=== PATIENT | female | born 1995 | race African-American/Black ===

== ENCOUNTER 2021-09-13 16:26 | Outpatient (CLI) | payer OTHER | END 2021-09-13 17:15 | disposition home or self-care (01) | LOC: PRENATAL 16:26 | PROVIDERS: ATTEND Obstetrics & Gynecology Maternal & Fetal Medicine | DX: Z36.89 Encounter for other specified antenatal screening (principal); O36.80X1 Pregnancy with inconclusive fetal viability, fetus 1; Z3A.11 11 weeks gestation of pregnancy ==

== ENCOUNTER 2021-11-04 08:08 | Outpatient (CLI) | payer OTHER | END 2021-11-04 08:58 | disposition home or self-care (01) | LOC: PRENATAL 08:08 | PROVIDERS: ATTEND Obstetrics & Gynecology Maternal & Fetal Medicine | DX: O35.0XX1 Maternal care for (suspected) central nervous system malformation in fetus, fetus 1 (principal); O35.3XX1 Maternal care for (suspected) damage to fetus from viral disease in mother, fetus 1; O98.512 Other viral diseases complicating pregnancy, second trimester; O26.872 Cervical shortening, second trimester; O26.852 Spotting complicating pregnancy, second trimester; Z36.89 Encounter for other specified antenatal screening; Z3A.19 19 weeks gestation of pregnancy ==

== ENCOUNTER 2021-11-24 09:38 | Outpatient (CLI) | payer OTHER | END 2021-11-24 10:20 | disposition home or self-care (01) | LOC: PRENATAL 09:38 | PROVIDERS: ATTEND Obstetrics & Gynecology Maternal & Fetal Medicine | DX: O26.842 Uterine size-date discrepancy, second trimester (principal); O26.872 Cervical shortening, second trimester; O26.852 Spotting complicating pregnancy, second trimester; Z36.89 Encounter for other specified antenatal screening; Z3A.21 21 weeks gestation of pregnancy ==

== ENCOUNTER 2022-01-10 11:40 | Outpatient (CLI) | payer OTHER | END 2022-01-10 12:46 | disposition home or self-care (01) | LOC: PRENATAL 11:40 | PROVIDERS: ATTEND Obstetrics & Gynecology Maternal & Fetal Medicine | DX: O26.879 Cervical shortening, unspecified trimester (principal); O26.849 Uterine size-date discrepancy, unspecified trimester; O26.859 Spotting complicating pregnancy, unspecified trimester ==

== ENCOUNTER 2022-01-31 18:30 | Outpatient (CLI) | payer OTHER ==
[2022-01-31] MEDS ORDERED: PRENATAL TABLE1 EAC1 PO (21:38)
== END 2022-02-01 10:00 | disposition home or self-care (01) ==
LOC: PRENATAL 18:30 → OBS/DEL 18:30 → PRENATAL 02-17 11:30
PROVIDERS: ATTEND Obstetrics & Gynecology
DX: O23.43 Unspecified infection of urinary tract in pregnancy, third trimester (principal); N39.0 Urinary tract infection, site not specified; Z3A.31 31 weeks gestation of pregnancy

== ENCOUNTER 2022-02-17 11:27 | Outpatient (CLI) | payer OTHER ==
[~2022-02-17 11:27] MED LIST: PRENATAL TABLE1 EAC1 PO
== END 2022-02-17 12:06 | disposition home or self-care (01) ==
LOC: PRENATAL 11:27
PROVIDERS: ATTEND Obstetrics & Gynecology Maternal & Fetal Medicine
DX: O26.849 Uterine size-date discrepancy, unspecified trimester (principal); O36.8199 Decreased fetal movements, unspecified trimester, other fetus; O35.0XX0 Maternal care for (suspected) central nervous system malformation in fetus, not applicable or unspecified; Z3A.34 34 weeks gestation of pregnancy

== ENCOUNTER 2022-03-18 14:15 | Inpatient (IN) | payer OTHER ==
[~2022-03-18] VITALS: Ht 165.1 cm; Wt 69.4 kg
== END 2022-03-31 13:59 | disposition home or self-care (01) | DRG 807 ==
LOC: OB/GYN 03-29 06:45 → LDR 03-29 06:45 → OB/GYN 03-29 17:59
PROVIDERS: ADMIT Obstetrics & Gynecology; ATTEND Obstetrics & Gynecology
PROC: 10E0XZZ Delivery of Products of Conception, External Approach (ICD-10-PCS; principal; 2022-03-29)
PROC: 4A1HXCZ Monitoring of Products of Conception, Cardiac Rate, External Approach (ICD-10-PCS; 2022-03-29)
PROC: 0UQG7ZZ Repair Vagina, Via Natural or Artificial Opening (ICD-10-PCS; 2022-03-29)
DX: O71.4 Obstetric high vaginal laceration alone (principal); O99.820 Streptococcus B carrier state complicating pregnancy; Z3A.39 39 weeks gestation of pregnancy; Z20.822 Contact with and (suspected) exposure to COVID-19; Z37.0 Single live birth